=== PATIENT | female | born 1980 | race Caucasian/White ===

== ENCOUNTER 2019-04-23 15:58 | Emergency (ER) | payer BC ==
[~2019-04-23] VITALS: Ht 168.9 cm; Wt 98.0 kg
[2019-04-23 16:40] VITALS: BP 98/50
--- NOTE | 2019-04-23 18:56 | RAD ---
Pelvic ultrasound to include transabdominal and transvaginal imaging April 23, 2019 HISTORY: Vaginal bleeding. History of hysterectomy 2 weeks ago. TECHNIQUE: Using the distended urinary bladder as a sonographic window, a real-time ultrasound examination of the pelvis was performed. Additionally in an attempt to better evaluate the uterus and adnexa, a transvaginal ultrasound study was performed. Multiple images were obtained. FINDINGS: The uterus is not visualized consistent with the patient's history of a hysterectomy. Neither ovary is definitely visualized. Within the left adnexa an oval-shaped structure with a thin septation is seen which measures 2.1 cm in greatest diameter. This likely represents an complex cyst. No free fluid is seen. No hematoma is noted. IMPRESSION: 1. Post hysterectomy. 2. 2.1 cm probable complex cyst is within the left adnexa. 3. Otherwise negative study. Electronically signed by: Kwaku Ybarra MD (04/23/2019 6:53 PM) [facility]
[2019-04-23 19:19] LABS: BASO # 0.1 x10^3/uL (0.0-0.2); BASO % 1 % (0-3); EOS # 0.3 x10^3/uL (0.0-0.7); EOS % 2 % (0-3); HEMATOCRIT 37.5 % (36.0-47.0); HEMOGLOBIN 12.5 g/dL (12.0-15.5); LYMPH # 3.5 x10^3/uL (1.0-4.8); LYMPH % 30 % (24-48); MEAN CORPUSCULAR HEMOGLOBIN 28 pg (25-35); MEAN CORPUSCULAR HGB CONC 33 g/dL (31-37); MEAN CORPUSCULAR VOLUME 83 fL (79-100); MONO # 0.8 x10^3/uL (0.0-1.1); MONO % 7 % (0-9); NEUT # 7.3 x10^3/uL (1.8-7.7); NEUT % 61 % (31-73); PLATELET COUNT 330 x10^3/uL (140-400); RED BLOOD COUNT 4.51 x10^6/uL (3.50-5.40); RED CELL DISTRIBUTION WIDTH 14.5 % (11.5-14.5)
[2019-04-23] MEDS ORDERED: HYDR-2761 PO (19:58)
--- NOTE | 2019-04-23 19:59 | PHYS DOC ---
Past Medical History Past Medical History: No Pertinent History (CARMEN MCKEON [employer]) Past Surgical History: Cholecystectomy, Hysterectomy, Other Additional Past Surgical Histo: D&E (CARMEN MCKEON [employer]) Alcohol Use: Rarely Drug Use: None (CARMEN MCKEON APRN) Adult General Chief Complaint Chief Complaint: VAGINAL BLEEDING HPI HPI Patient is a 38 year old female, accompanied by her significant other, who presents to the emergency department with complaints of lower abdominal cramping and vaginal bleeding that began while she was out shopping this afternoon prior to arrival. Patient states she had a vaginal hysterectomy that was laparoscopic assisted 2 weeks ago in [place], [place] where she lives. She called her [facility] office who told her to go to the emergency room. Patient states she has been taking naproxen for pain but she hasn't taken any since this morning. The patient states the blood with clots that initially came out was bright red. Now she reports a dark bloody discharge. She denies any back pain, dysuria, hematuria, increased urinary frequency, low back pain, fever, nausea, vomiting, or diarrhea. She currently rates the discomfort in her lower right abdomen as sharp cramping and scores of 8 out of 10 on the pain scale, there are no alleviating or exacerbating factors. All other ROS is neg unless otherwise noted in HPI. (CARMEN MCKEON APRN) Review of Systems Review of Systems See Above (CARMEN MCKEON APRN) Current Medications Current Medications Current Medications Medications (Trade) Dose Ordered Sig/Leti Start Time Stop Time Status Last Admin Dose Admin Acetaminophen/ Hydrocodone Bitart (Lortab 5/325) 1 tab STK-MED ONCE 04/23/19 20:11 04/23/19 20:18 DC (JOYCE UMANA DO) Allergies Allergies Allergies Coded Allergies Type Severity Reaction Last Updated Verified No Known Drug Allergies 04/23/19 No (JOYCE UMANA DO) Physical Exam Physical Exam See Above Constitutional: Well developed, well nourished, no acute distress, non-toxic appearance. [] HENT: Normocephalic, atraumatic, bilateral external ears normal, oropharynx moist, no oral exudates, nose normal. [] Eyes: PERRLA, EOMI, conjunctiva normal, no discharge. [] Neck: Normal range of motion, no stridor. [] Cardiovascular:Heart rate regular rhythm Lungs & Thorax: Bilateral breath sounds clear to auscultation [] Pelvic Exam: Pr Intern present Romina RN Abdomen: Nontender, soft External Genitalia: Normal Skin Speculum: Normal vaginal mucosa with light amount of dark bloody discharge Bimanual: No adnexal masses or tenderness, palpable vaginal cuff Skin: Warm, dry, no erythema, no rash. [] Extremities: No cyanosis, ROM intact, no edema. [] Neurologic: Alert and oriented X 3, no focal deficits noted. [] Psychologic: Affect normal, judgement normal, mood normal. [] (CARMEN MCKEON APRN) Current Patient Data Vital Signs Vital Signs Date Time Temp Pulse Resp B/P (MAP) Pulse Ox O2 Delivery O2 Flow Rate FiO2 04/23/19 20:15 16 99 Room Air 04/23/19 16:40 97.9 82 98/50 (66) 97.9 (UMANA,JOYCE Huizar DO) Lab Values Laboratory Tests Test 04/23/19 19:05 White Blood Count 12.0 x10^3/uL (4.0-11.0) H Red Blood Count 4.51 x10^6/uL (3.50-5.40) Hemoglobin 12.5 g/dL (12.0-15.5) Hematocrit 37.5 % (36.0-47.0) Mean Corpuscular Volume 83 fL (79-100) Mean Corpuscular Hemoglobin 28 pg (25-35) Mean Corpuscular Hemoglobin Concent 33 g/dL (31-37) Red Cell Distribution Width 14.5 % (11.5-14.5) Platelet Count 330 x10^3/uL (140-400) Neutrophils (%) (Auto) 61 % (31-73) Lymphocytes (%) (Auto) 30 % (24-48) Monocytes (%) (Auto) 7 % (0-9) Eosinophils (%) (Auto) 2 % (0-3) Basophils (%) (Auto) 1 % (0-3) Neutrophils # (Auto) 7.3 x10^3/uL (1.8-7.7) Lymphocytes # (Auto) 3.5 x10^3/uL (1.0-4.8) Monocytes # (Auto) 0.8 x10^3/uL (0.0-1.1) Eosinophils # (Auto) 0.3 x10^3/uL (0.0-0.7) Basophils # (Auto) 0.1 x10^3/uL (0.0-0.2) Laboratory Tests 04/23/19 19:05 (JOYCE UMANA DO) EKG EKG [] (CARMEN MCKEON APRN) Radiology/Procedures Radiology/Procedures [] (CARMEN MCKEON APRN) Course & Med Decision Making Course & Med Decision Making Pertinent Labs and Imaging studies reviewed. (See chart for details) [address] Murillo and advised of patient in the ER. He agrees with plan of care, recommends checking CBC while pt in the ER. CBC unremarkable. US pelvis revealed 2.1 cm L adnexal cyst otherwise negative study. Pt VSS in the ER. Pt was given a hydrocodone in the ER. Prescription wr itten for hydrocodone 5/325 mg tablets #8 Pt was instructed to return to the ER if symptoms worsen, follow up with her OBGyn on Friday. Pt verbalized an understanding of home care, medications, follow-up, and return to ED instructions and was in agreement with the plan of care. [] (CARMEN MCKEON APRN) Dragon Disclaimer Dragon Disclaimer This electronic medical record was generated, in whole or in part, using a voice recognition dictation system. (CARMEN MCKEON APRN) Departure Departure Impression: Primary Impression: Postoperative vaginal bleeding following genitourinary procedure Disposition: HOME, SELF-CARE Condition: STABLE Referrals: UNKNOWN PCP NAME (PCP) Patient Instructions: Postsurgical Bleeding Additional Instructions: Fill the prescription and take as directed for pain. Continue taking 800 mg of ibuprofen as directed by your OB. Follow up with your OB on Friday. Return to the ER if your symptoms worsen. Scripts Hydrocodone Bit/Acetaminophen (HYDROCODONE-APAP 5-325 ) 1 Tab Tablet 1 TAB PO PRN Q6HRS PRN for PAIN for 3 Days, #8 TAB 0 Refills Prov: CARMEN MCKEON APRN 04/23/19 Attending Signature Attending Signature I have reviewed the PA/CONTINUOUS MINER's note and plan of care. I was available for consultation as needed during the patient's visit in the emergency department. I agree with the clinical impression, plan, and disposition. (JOYCE UMANA DO) CARMEN MCKEON [employer] Apr 23, 2019 19:59 JOYCE UMANA DO Apr 27, 2019 10:55
[2019-04-23] MEDS ORDERED: HYDROcodone/APAP 5/325MG 1 TAB TABLET PO ONE (20:00)
[2019-04-23] MEDS ORDERED: HYDROcodone/APAP 5/325MG 1 TAB TABLET ONE (20:11)
== END 2019-04-23 20:18 | disposition home or self-care (01) ==
LOC: ER 15:58
DX: N99.820 Postprocedural hemorrhage of a genitourinary system organ or structure following a genitourinary system procedure (principal); N93.8 Other specified abnormal uterine and vaginal bleeding; Z90.49 Acquired absence of other specified parts of digestive tract; Z90.710 Acquired absence of both cervix and uterus
CPT/HCPCS: 36415; 76830; 76856; 85025; 99285